=== PATIENT | male | born 1965 | race Caucasian/White ===

== ENCOUNTER 2017-09-18 14:04 | Emergency (ER) | payer BC, OTHER ==
[~2017-09-18] VITALS: Ht 180.3 cm; Wt 66.0 kg
[2017-09-18 15:20] LABS: ALBUMIN 3.3 g/dL (3.4-5.0); ANION GAP 10 mmol/L (5-15); CALCIUM 9.5 mg/dL (8.5-10.1); CHLORIDE 107 mmol/L (98-107); CREATININE 1.12 mg/dL (0.7-1.3)
[2017-09-18 15:46] LABS: BASOPHILS # (AUTO) 0.03 x10^3/uL (0-0.1); BASOPHILS % (AUTO) 0 % (0-1); EOSINOPHILS # (AUTO) 0.02 x10^3/uL (0-0.4); EOSINOPHILS % (AUTO) 0 % (1-7); LYMPHOCYTES # (AUTO) 0.88 x10^3/uL (1-3.4); LYMPHOCYTES % (AUTO) 11 % (22-44); MD NO; MEAN CORPUSCULAR HEMOGLOBIN 30.8 pg (27.5-34.5); MEAN CORPUSCULAR HGB CONC 33.8 g/dL (33.2-36.2); MEAN CORPUSCULAR VOLUME 91.2 fL (81-97); MEAN PLATELET VOLUME 9.9 fL (7.4-10.4); MONOCYTES # (AUTO) 0.56 x10^3/uL (0.2-0.8); MONOCYTES % (AUTO) 7 % (2-9); NEUTROPHILS # (AUTO) 6.58 x10^3/uL (1.8-6.8); NEUTROPHILS % (AUTO) 82 % (42-75); PLATELET COUNT 160 x10^3/uL (130-400); RED BLOOD COUNT 5.13 x10^6/uL (4.38-5.82); RED CELL DISTRIBUTION WIDTH 13.6 % (9.4-14.8)
[2017-09-18] MEDS ORDERED: AZIT500T PO (16:52)
[2017-09-18] MEDS ORDERED: [UNRECOGNIZED DRUG - REMARK] (16:52)
[2017-09-18 16:53] VITALS: BP 153/98
== END 2017-09-18 16:55 | disposition home or self-care (01) ==
LOC: ED 14:22
DX: J15.9 Unspecified bacterial pneumonia (principal); M79.1 Myalgia; M06.9 Rheumatoid arthritis, unspecified; Z94.0 Kidney transplant status
CPT/HCPCS: 36415; 71046; 80048; 82040; 83605; 84145; 85025; 87040; 99285

== ENCOUNTER 2019-01-25 12:56 | Emergency (ER) | payer BC ==
[~2019-01-25] VITALS: Ht 180.3 cm; Wt 68.0 kg
[~2019-01-25 12:56] MED LIST: AZIT500T PO; [UNRECOGNIZED DRUG - REMARK]
--- NOTE | 2019-01-25 14:01 | NUR ---
"MY BEATER LEAD THINKS I EITHER HAVE KIDNEY STONE OR A UTI, MY CREAT HAS GONE UP. I'M IMMUNOCOMPROMISED D/T ANTI-REJECTION MEDS FROM KIDNEY [facility]PL[facility] (8 YEARS AGO)" DOES NOT APPEAR TOXIC: DENIES FEVER, PAIN. DOES REPORT INTERMITTENT RIGHT PELVIC CRAMPING/NAUSEA UA COLLECTED AND SENT AT 1400
[2019-01-25 14:19] LABS: MICROSCOPIC INDICATED
[2019-01-25 14:22] LABS: CULTURE INDICATED? NO
[2019-01-25 14:39] LABS: BASOPHILS # (AUTO) 0.04 x10^3/uL (0-0.1); BASOPHILS % (AUTO) 1 % (0-1); EOSINOPHILS # (AUTO) 0.14 x10^3/uL (0-0.4); EOSINOPHILS % (AUTO) 2 % (1-7); LYMPHOCYTES # (AUTO) 0.73 x10^3/uL (1-3.4); LYMPHOCYTES % (AUTO) 10 % (22-44); MD NO; MEAN CORPUSCULAR HEMOGLOBIN 31.3 pg (27.5-34.5); MEAN CORPUSCULAR HGB CONC 33.5 g/dL (33.2-36.2); MEAN CORPUSCULAR VOLUME 93.5 fL (81-97); MEAN PLATELET VOLUME 9.5 fL (7.4-10.4); MONOCYTES # (AUTO) 0.28 x10^3/uL (0.2-0.8); MONOCYTES % (AUTO) 4 % (2-9); NEUTROPHILS % (AUTO) 85 % (42-75); PLATELET COUNT 167 x10^3/uL (130-400); RED CELL DISTRIBUTION WIDTH 13.7 % (9.4-14.8)
[2019-01-25 14:47] LABS: ALBUMIN 3.4 g/dL (3.4-5.0); ANION GAP 5 mmol/L (5-15); CALCIUM 9.7 mg/dL (8.5-10.1); CHLORIDE 111 mmol/L (98-107); CREATININE 1.16 mg/dL (0.7-1.3)
[2019-01-25 15:14] VITALS: BP 155/114
--- NOTE | 2019-01-25 15:17 | NUR ---
ALL TESTING RESULTED-PLACED UP FOR RECHECK VITAL UPSATED-NOTED TO BE HYPERTENSIVE-PROVIDER MADE AWARE
== END 2019-01-25 15:55 | disposition home or self-care (01) ==
LOC: ED 15:50
DX: R10.9 Unspecified abdominal pain (principal); I10 Essential (primary) hypertension
CPT/HCPCS: 36415; 80048; 81001; 82040; 85025; 99283

== ENCOUNTER → 2019-02-04 | Outpatient (CLI) | payer BC | END | disposition home or self-care (01) | LOC: CFH 12:29 | PROVIDERS: ATTEND Urology | DX: N28.89 Other specified disorders of kidney and ureter (principal); N26.1 Atrophy of kidney (terminal); N40.0 Benign prostatic hyperplasia without lower urinary tract symptoms; Z87.442 Personal history of urinary calculi | CPT/HCPCS: 74176 ==

== ENCOUNTER → 2019-03-04 | Outpatient (CLI) | payer BC ==
[~2019-03-04] MED LIST changes: +FUROSEMIDE 20 MG/2 ML ONE
== END | disposition home or self-care (01) ==
LOC: RAD 10:10
PROVIDERS: ATTEND Urology
DX: N13.30 Unspecified hydronephrosis (principal); E11.9 Type 2 diabetes mellitus without complications; Z94.0 Kidney transplant status
CPT/HCPCS: 78708; A9562; J1940